=== PATIENT | female | born 1965 | race Caucasian/White ===

== ENCOUNTER 2016-08-25 17:11 | Emergency (ER) | payer OTHER ==
[~2016-08-25] VITALS: Ht 167.6 cm; Wt 68.5 kg
[~2016-08-25 17:11] MED LIST: ALBU8.5H3 INH; FLUC150T17 PO; HC30CR25 TOP; IPRA12.93 INHALATION
[2016-08-25 17:26] VITALS: Ht 167.6 cm; Wt 68.5 kg
== END 2016-08-25 18:39 | disposition left against medical advice (07) ==
LOC: FTE 17:11
DX: Z53.21 Procedure and treatment not carried out due to patient leaving prior to being seen by health care provider (principal)

== ENCOUNTER 2016-09-09 16:29 | Emergency (ER) | payer SELFPAY ==
[~2016-09-09] VITALS: Ht 167.6 cm; Wt 68.0 kg
[2016-09-09 16:45] VITALS: Ht 167.6 cm; Wt 68.0 kg
== END 2016-09-09 19:30 | disposition left against medical advice (07) ==
LOC: FTE 16:29
DX: Z53.21 Procedure and treatment not carried out due to patient leaving prior to being seen by health care provider (principal)

== ENCOUNTER 2016-09-13 18:12 | Emergency (ER) | payer OTHER ==
[~2016-09-13] VITALS: Wt 70.0 kg
[2016-09-13] MEDS ORDERED: ALBUTEROL 0.5% (NEB) 2.5 MG/0.5 ML AMP NEB STA (19:46)
[2016-09-13] MEDS ORDERED: IPRATROPIUM (NEB) 0.5 MG/2.5 ML AMP NEB STA (19:46)
--- NOTE | 2016-09-13 19:56 | RADRPT ---
PROCEDURE: XR Chest. CLINICAL INDICATION: Cough. TECHNIQUE: Single frontal chest x-ray. COMPARISON: None. FINDINGS: The lungs are clear of acute infiltrates, edema, effusions, or masses.. The cardiomediastinal silho uette is unremarkable. The osseous structures are intact. IMPRESSION: No acute cardiopulmonary disease. RPTAT: [facility] .Elieser Love MD, MD Date Time Electronically viewed and signed by .Elieser Love MD, MD on 09/13/2016 19:56 .L/
[2016-09-13] MEDS ORDERED: AZIT250T94 PO (20:18)
--- NOTE | 2016-09-13 20:18 | ERD ---
ER Documentation Chief Complaint Date/Time DATE: 09/13/16 TIME: 20:11 Chief Complaint COUGH X 2 MONTHS HPI This 50-year-old female who presents to emergency department today complaining of cough for several months. Patient is also reporting some nausea vomiting and last vomited last night. She states that a couple of days ago she also had a fever. She is also complaining of sinus pressure. Patient states that she is seen her primary care physician and has been diagnosed with emphysema. Patient still occasionally smokes. States she takes Ventolin and Dulera. States she currently lives in a sober living facility. States she is waiting for a pulmonology specialist at all and feel and has a referral but does not have an appointment yet. ROS All systems reviewed and are negative except as per history of present illness. Medications Home Meds Active Scripts Albuterol Sulfate* (Albuterol Sulfate* Neb) 0.083%-3 Ml Neb, 2.5 MG NEB Q4 Y for SHORTNESS OF BREATH, #30 EA Prov:ITZEL FRANCOIS PA-C 09/13/16 Acetaminophen* (Tylophen*) 500 Mg Capsule, 1 CAP PO Q6H Y for PAIN AND OR ELEVATED TEMP, #30 CAP Prov:ITZEL FRANCOIS PA-C 09/13/16 Ibuprofen* (Motrin*) 600 Mg Tab, 600 MG PO Q6, #30 TAB Prov:ITZEL FRANCOIS PA-C 09/13/16 Albuterol Sulfate* (Proair HFA*) 8.5 Gm Hfa.aer.ad, 2 PUFF INH Q4, #1 INHALER Prov:ITZEL FRANCOIS PA-C 09/13/16 Mometasone-Formoterol (Dulera) 200-5 Mcg/Inh - 13 Gm Hfa.aer.ad, 2 PUFFS INHALATION BID, #1 INHALER Prov:ITZEL FRANCOIS PA-C 09/13/16 Ondansetron Hcl* (Zofran*) 4 Mg Tablet, 4 MG PO Q6H for NAUSEA AND/OR VOMITING, #30 TAB Prov:ITZEL FRANCOIS PA-C 09/13/16 Azithromycin* (Zithromax*) 250 Mg Tablet, 250 MG PO .AKBAR DIRECTED, #6 TAB TAKE 500 MG (2 TABS) THE FIRST DAY THEN 250 MG (1 TAB) DAYS 2-5 Prov:KASSIDYBENNYGretchen Campa PA-C 09/13/16 Hydrocortisone* Topical (Hydrocortisone* Topical) 2.5%-28.3 Gm Cream..g., 1 APPLIC TOP BID, #1 TUB Prov:OKSANA CUNNINGHAM PA-C 07/30/16 Fluconazole* (Diflucan*) 150 Mg Tablet, 150 MG PO ONCE, #1 TAB Prov:OKSANA CUNNINGHAM PA-C 07/30/16 Albuterol Sulfate* (Proair HFA*) 8.5 Gm Hfa.aer.ad, 2 PUFF INH Q4, #1 INHALER Prov:OKSANA CUNNINGHAM PA-C 07/30/16 Ipratropium [place]* (Atrovent HFA*) 12.9 Gm Aer.w.adap, 2 PUFF INHALATION Q4H for SHORTNESS OF BREATH, #1 INHALER Prov:OKSANA CUNNINGHAM PA-C 07/30/16 Allergies Allergies: Coded Allergies: No Known Allergy (Unverified , 07/30/16) PMhx/Soc Medical and Surgical Hx: pt denies Surgical Hx History of Surgery: No Anesthesia Reaction: No Hx Neurological Disorder: No Hx Respiratory Disorders: Yes (copd) Hx Cardiac Disorders: No Hx Psychiatric Problems: Yes (bipolar, depression) Hx Miscellaneous Medical Probl: Yes (hepatitis c,Vivian Vaginitis) Hx Alcohol Use: No Hx Substance Use: Yes (former drug use) Hx Tobacco Use: No Smoking Status: Unknown if ever smoked Physical Exam Vitals Vital Signs Date Time Temp Pulse Resp B/P Pulse Ox O2 Delivery O2 Flow Rate FiO2 09/13/16 20:06 93 18 98 21 09/13/16 18:22 98.0 87 16 136/71 94 Physical Exam Const: No acute distress Head: Atraumatic . Tenderness to palpation frontal sinus. Eyes: Normal Conjunctiva ENT: Normal External Ears, Nose and Mouth. Neck: Full range of motion..~ No meningismus. Resp: Coarse breath sound bilaterally in all lung evans Cardio: Regular rate and rhythm, no murmurs Abd: Soft, non tender, non distended. Normal bowel sounds Skin: No petechiae or rashes Neur: Awake and alert Psych: Normal Mood and Affect Results 24 hrs Current Medications Medications (Trade) Dose Ordered Sig/Hilda Route PRN Reason Start Time Stop Time Status Last Admin Dose Admin Albuterol (Proventil 0.5% (Neb)) 5 mg ONCE STAT NEB 09/13/16 19:46 09/13/16 19:49 DC 09/13/16 19:59 Ipratropium [place] (Atrovent 0.02% (Neb)) 1.5 mg ONCE STAT NEB 09/13/16 19:46 09/13/16 19:49 DC 09/13/16 19:59 Procedures/MDM This is a 50year-old female who presents to the emergency department today with multiple complaints. Her biggest concern was having some persisting cough and difficulty breathing. On physical exam patient is afebrile. Her oxygen saturation is 94%. Patient was requesting a breathing treatment. Given the patient's oxygen saturation did feel that this was appropriate. I also obtained a chest x-ray. Patient did not have any wheezing on physical exam did not feel that she required steroids at this time. Chest x-ray is negative. The lungs are clear of acute infiltrates, edema, effusions or masses. Patient has also had other complaints of vomiting, intermittent fevers and may have influenza like symptoms versus URI versus sinusitis. I have low suspicion for strep pharyngitis, peritonsillar abscess, retropharyngeal abscess, otitis media, PNA, , abscess, meningitis, sepsis, or other acute infectious bacterial process. Patient will be signed out to Gillian Walters NP for reevaluation after breathing treatment Patient will be given a prescription for azithromycin for possible bronchitis. I will give her a refill on her medications. I will also give her a prescription for Zofran. Patient was requesting a nebulizer treatment for home. I will write her a prescription for this as well as Tylenol and Motrin for fever. She is instructed to follow-up with her primary care physician and follow up on her pulmonology specialist. At this time the patient is stable for discharge and outpatient management. Patient should follow up with their PCP in the next 1-2 days. They may return to the emergency department sooner for any persistent or worsening of symptoms. Patient understood and agreed with the plan. Any further workup or imaging or medication prescription will be ordered by Gillian Walters NP Departure Diagnosis: Primary Impression: Cough Condition: Fair PROUSE,ITZEL M. PA-C Sep 13, 2016 20:18
[2016-09-13] MEDS ORDERED: MOME13HF INHALATION (20:19)
[2016-09-13] MEDS ORDERED: ONDA4TAB8 PO (20:19)
[2016-09-13] MEDS ORDERED: ACET500C5 PO (20:20)
[2016-09-13] MEDS ORDERED: IBUP-1542 PO (20:20)
[2016-09-13] MEDS ORDERED: ALBU2.5V3 NEB (20:20)
[2016-09-13] MEDS ORDERED: ALBU8.5H3 INH (20:20)
--- NOTE | 2016-09-13 21:24 | EN ---
Date/Time of Note Date/Time of Note DATE: 09/13/16 TIME: 21:23 ER Progress Note This patient was signed out to me by ROMA Younger, was reevaluated, verbalized feeling much better, lungs are clear, oxygenation is normal, patient will be discharged according to Carla rees. Patient is stable upon discharge. MARINA SERRATO NP Sep 13, 2016 21:24
[2016-09-13 21:35] VITALS: BP 104/56; PULSE 85; RESP 19; TEMP 98.1
== END 2016-09-13 21:36 | disposition home or self-care (01) ==
LOC: FTE 18:12
DX: R05 Cough (principal); R11.2 Nausea with vomiting, unspecified; J44.9 Chronic obstructive pulmonary disease, unspecified; F17.210 Nicotine dependence, cigarettes, uncomplicated
CPT/HCPCS: 71010; 94664; Z7502; Z7610